=== PATIENT | male | born 1975 | race Caucasian/White ===

== ENCOUNTER 2022-12-13 16:35 | Outpatient (REF) | payer OTHER, SELFPAY ==
--- NOTE | ~2022-12-13 | US_ITS ---
EXAMINATION: US VENOUS WITH DOPPLER LOWER EXTREMITY, BILATERAL CLINICAL INFORMATION: Pain and swelling, bilateral limb pain. COMPARISON: None available. TECHNIQUE: Ultrasound of the deep veins is performed from the hip to the calf with compression sonography and color and pulse Doppler assessment. Spectral analysis with color-flow imaging is performed. FINDINGS: RIGHT: There is normal venous compression and respiratory variation and augmented flow. The visualized common femoral vein, superficial femoral vein, profunda femoral vein, popliteal vein, and the trifurcation region shows no evidence of deep venous thrombosis. There is no significant popliteal fossa cyst. LEFT: There is normal venous compression and respiratory variation and augmented flow. The visualized common femoral vein, superficial femoral vein, profunda femoral vein, popliteal vein, and the trifurcation region shows no evidence of deep venous thrombosis. There is no significant popliteal fossa cyst. If the patient's symptoms persist, followup ultrasound in 5 days 7 days might be of value to exclude proximal propagation from a non-visualized calf vein. US/US venous duplex LE BI IMPRESSION: No DVT demonstrated in the bilateral lower extremities.
== END 2022-12-13 16:36 | disposition home or self-care (01) ==
LOC: HO.US 16:35
PROVIDERS: Visit Provider Internal Medicine Nephrology
DX: M79.606 Pain in leg, unspecified (principal); R22.43 Localized swelling, mass and lump, lower limb, bilateral; N18.30 Chronic kidney disease, stage 3 unspecified
CPT/HCPCS: 93970

== ENCOUNTER 2023-02-21 14:15 | Outpatient (AMB) | payer OTHER, SELFPAY ==
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
[2023-02-21 14:46] VITALS: BP 110/70; PULSE 102; BMI 23.2
== END 2023-02-21 15:13 | disposition home or self-care (01) ==
LOC: HO.HKA 14:15
PROVIDERS: Visit Provider Internal Medicine Nephrology
DX: N18.4 Chronic kidney disease, stage 4 (severe) (principal); K50.919 Crohn's disease, unspecified, with unspecified complications; L03.116 Cellulitis of left lower limb
CPT/HCPCS: 99214

== ENCOUNTER → 2023-02-21 14:15 | Outpatient (BNVA) | payer OTHER, SELFPAY | PROVIDERS: Visit Provider Internal Medicine Nephrology | DX: N18.4 Chronic kidney disease, stage 4 (severe) (principal); L03.116 Cellulitis of left lower limb | CPT/HCPCS: 99212 ==

== ENCOUNTER 2023-03-27 11:48 | Outpatient (AMB) | payer OTHER, SELFPAY ==
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
[2023-03-27 11:55] VITALS: BP 90/60; PULSE 91
== END 2023-03-27 12:27 | disposition home or self-care (01) ==
PROVIDERS: PCP Nurse Practitioner Adult Health; Visit Provider Internal Medicine Nephrology
DX: N18.4 Chronic kidney disease, stage 4 (severe) (principal); E87.20 Acidosis, unspecified; N17.0 Acute kidney failure with tubular necrosis
CPT/HCPCS: 99213

== ENCOUNTER → 2023-03-27 11:48 | Outpatient (BNVA) | payer OTHER, SELFPAY | PROVIDERS: PCP Nurse Practitioner Adult Health; Visit Provider Internal Medicine Nephrology | DX: N18.4 Chronic kidney disease, stage 4 (severe) (principal); N17.0 Acute kidney failure with tubular necrosis; E87.20 Acidosis, unspecified | CPT/HCPCS: 99212 ==

== ENCOUNTER 2023-05-24 10:49 | Outpatient (AMB) | payer OTHER, SELFPAY ==
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
[2023-05-24 11:11] VITALS: BP 100/60; BMI 22.4
== END 2023-05-24 12:08 | disposition home or self-care (01) ==
PROVIDERS: PCP Nurse Practitioner Adult Health; Visit Provider Internal Medicine Nephrology
DX: E87.20 Acidosis, unspecified (principal); N18.4 Chronic kidney disease, stage 4 (severe); D63.1 Anemia in chronic kidney disease
CPT/HCPCS: 99214

== ENCOUNTER → 2023-05-24 10:49 | Outpatient (BNVA) | payer OTHER, SELFPAY | PROVIDERS: PCP Nurse Practitioner Adult Health; Visit Provider Internal Medicine Nephrology | DX: N18.4 Chronic kidney disease, stage 4 (severe) (principal); D63.1 Anemia in chronic kidney disease; E87.20 Acidosis, unspecified | CPT/HCPCS: 99212 ==

== ENCOUNTER 2023-08-23 09:48 | Outpatient (AMB) | payer OTHER, SELFPAY ==
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
[2023-08-23 09:53] VITALS: BP 110/70; PULSE 102; O2SAT 93; BMI 21.9
== END 2023-08-23 10:13 | disposition home or self-care (01) ==
PROVIDERS: PCP Nurse Practitioner Adult Health; Visit Provider Internal Medicine Nephrology
DX: N18.4 Chronic kidney disease, stage 4 (severe) (principal); D63.1 Anemia in chronic kidney disease
CPT/HCPCS: 99214

== ENCOUNTER → 2023-08-23 09:48 | Outpatient (BNVA) | payer OTHER, SELFPAY | PROVIDERS: PCP Nurse Practitioner Adult Health; Visit Provider Internal Medicine Nephrology | DX: N18.4 Chronic kidney disease, stage 4 (severe) (principal); D63.1 Anemia in chronic kidney disease | CPT/HCPCS: 99212 ==

== ENCOUNTER 2023-11-15 10:10 | Outpatient (AMB) | payer OTHER, SELFPAY ==
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
[2023-11-15 10:25] VITALS: BP 130/80; PULSE 105; O2SAT 97; BMI 23.2
== END 2023-11-15 11:02 | disposition home or self-care (01) ==
PROVIDERS: PCP Nurse Practitioner Adult Health; Visit Provider Internal Medicine Nephrology
DX: N18.4 Chronic kidney disease, stage 4 (severe) (principal); E87.20 Acidosis, unspecified; D63.1 Anemia in chronic kidney disease
CPT/HCPCS: 99214

== ENCOUNTER → 2023-11-15 10:10 | Outpatient (BNVA) | payer OTHER, SELFPAY | PROVIDERS: PCP Nurse Practitioner Adult Health; Visit Provider Internal Medicine Nephrology | DX: E87.20 Acidosis, unspecified (principal); N18.4 Chronic kidney disease, stage 4 (severe); D63.1 Anemia in chronic kidney disease | CPT/HCPCS: 99212 ==

== ENCOUNTER 2024-02-26 16:27 | Outpatient (AMB) | payer OTHER, SELFPAY ==
[2024-02-26 16:30] VITALS: BP 120/82; PULSE 89; O2SAT 97; BMI 26.2
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
== END 2024-02-26 16:49 | disposition home or self-care (01) ==
LOC: HO.HKAS 16:27
PROVIDERS: PCP Nurse Practitioner Adult Health; Visit Provider Internal Medicine Nephrology
DX: N18.4 Chronic kidney disease, stage 4 (severe) (principal); E87.20 Acidosis, unspecified; D63.1 Anemia in chronic kidney disease; E55.9 Vitamin D deficiency, unspecified
CPT/HCPCS: 99214

== ENCOUNTER → 2024-02-26 16:27 | Outpatient (BNVA) | payer OTHER, SELFPAY | PROVIDERS: PCP Nurse Practitioner Adult Health; Visit Provider Internal Medicine Nephrology | DX: N18.4 Chronic kidney disease, stage 4 (severe) (principal); D63.1 Anemia in chronic kidney disease; E87.20 Acidosis, unspecified; E53.8 Deficiency of other specified B group vitamins; E55.9 Vitamin D deficiency, unspecified | CPT/HCPCS: 99212 ==

== ENCOUNTER 2024-05-29 10:31 | Outpatient (AMB) | payer OTHER, SELFPAY ==
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
--- OUTSIDE RECORDS SUMMARY | 2024-05-29 10:33 | XMS_ITS | Clinical Summary ---
[facility] [address] [place] [address] Care Team Providers Care Bridges And Buildings Supervisor Name Role Phone Josie Samuel NP Primary Care Provider [phone] Social History Tobacco Use Types Packs/Day Years Used Date Smoking Tobacco: Former Cigarettes Q uit: 10/22/2022 Smokeless Tobacco: Never Alcohol Use Standard Drinks/Week Comments Not Currently 0 (1 standard drink = 0.6 oz pur e alcohol) Sex and Gender Information Value Date Recorded Sex Assigned at Not on file Gender Identity Not on file Sexual Orientation Not on file Obstetrics History Last Filed Vital Signs Vital Sign Reading Time Taken Comments Blood Pressure 120/70 01/17/2023 8:15 AM EDT Sit ting L Arm Pulse 74 01/17/2023 8:15 AM EDT Temperature - - Respiratory Rate - - Oxygen Saturation - - Inhaled Oxygen Concentration - - Weight 56.2 kg (124 lb) 01/17/2023 8:15 AM EDT Height - - Body Mass Index - - Plan of Treatment Health Maintenance Due Date Last Done Comments Breast Cancer Screening 1975 COVID-19 Vaccine (#1) 1980 Pneumococcal Vaccine: Pediat rics (0 to 5 Years) and At-Risk Patients (6 to 64 Years) (1 of 2 - PCV) 1981 DTaP,Tdap,and Td Vaccines (1 - Tdap) 1994 Hepatitis B Vaccines (1 of 3 - 19+ 3-dose series) 1994 Cervical Cancer Screening: P ap Smear 1996 Cholesterol Screening (Lipid Panel) 03/25/2022 Colorectal Cancer Screening: Colonoscopy 03/25/2022 Depression Screening 03/25/2022 HIV Screening 03/25/2022 Hepatitis C Screening 03/25/2022 Social Influencers of Health Screening 03/25/2022 Hypertension/CHF/CAD Annual BMP Blood Test 05/23/2023 Influenza Vaccine (#1) 2023 HIB Vaccines Aged Out No longer eligi ble based on patient's age to complete this topic HPV Vaccines Aged Out No longer eligi ble based on patient's age to complete this topic Hepatitis A Vaccines Aged Out No long er eligible based on patient's age to complete this topic IPV Vaccines Aged Out No longer eligi ble based on patient's age to complete this topic MMR Vaccines Aged Out No longer eligi ble based on patient's age to complete this topic Meningococcal ACWY Vaccine Aged Out N o longer eligible based on patient's age to complete this topic RSV Immunization Patients Un dieter 20 months Aged Out No longer eligible b ased on patient's age to complete this topic Varicella Vaccines Aged Out No longer eligible based on patient's age to complete this topic Care Teams Bridges And Buildings Supervisor Relationship Specialty Start Date End Date Josie Samuel NP [address] [place] [address] PCP - General 11/02/22
--- OUTSIDE RECORDS SUMMARY | 2024-05-29 10:33 | XMS_ITS | Clinical Summary ---
Author Organization [facility] Address [address] [place] [address] Care Team Providers Care Pre Sales Systems Engineer Name Role Phone Narendra Ulloa MD Primary Care Provider [phone] Family History Medical History Relation Name Comments Cancer Brother Cancer Mother Relation Name Status Comments Brother Mother Social History Tobacco Use Types Packs/Day Years Used Date Smoking Tobacco: Never Assessed Sex and Gender Information Value Date Recorded Sex Assigned at Not on file Gender Identity Not on file Sexual Orientation Not on file Job Start Date Occupation Industry Not on file Not on file Not on file Plan of Treatment Health Maintenance Due Date Last Done Comments Hepatitis B Vaccines (1 of 3 - 3-dose series) 1975 Hepatitis C Screening 1975 COVID-19 Vaccine (#1) 1975 Depression Screening 1987 Preventative Health Evaluation 1993 DTap / Tdap / Td (1 - Tdap) 1994 Cervical Cancer Screening (P ap Smear) 1996 Colon Cancer Screening (Colonoscopy) 2020 Influenza Vaccine (#1) 2023 Pneumococcal Vaccine Aged Out No long er eligible based on patient's age to complete this topic RSV Ped < 20 months Aged Out No longe r eligible based on patient's age to complete this topic Care Teams Pre Sales Systems Engineer Relationship Specialty Start Date End Date Narendra Ulloa MD PCP - General Body Shop Floorperson 02/07/17
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
[2024-05-29 10:51] VITALS: BP 130/70; PULSE 95; O2SAT 97; BMI 24.0
== END 2024-05-29 11:19 | disposition home or self-care (01) ==
LOC: HO.HKAS 10:31
PROVIDERS: PCP Nurse Practitioner Family; Visit Provider Internal Medicine Nephrology
DX: N18.4 Chronic kidney disease, stage 4 (severe) (principal); D63.1 Anemia in chronic kidney disease; E87.20 Acidosis, unspecified
CPT/HCPCS: 99214

== ENCOUNTER → 2024-05-29 10:31 | Outpatient (BNVA) | payer OTHER, SELFPAY | PROVIDERS: PCP Nurse Practitioner Family; Visit Provider Internal Medicine Nephrology | DX: N18.4 Chronic kidney disease, stage 4 (severe) (principal); E87.20 Acidosis, unspecified; D63.1 Anemia in chronic kidney disease | CPT/HCPCS: 99212 ==

== ENCOUNTER 2024-08-12 10:17 | Outpatient (AMB) | payer OTHER, SELFPAY ==
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
[2024-08-12 10:35] VITALS: BP 140/82; PULSE 101; O2SAT 97; BMI 25.3
--- OUTSIDE RECORDS SUMMARY | 2024-08-12 11:52 | XMS_ITS | Clinical Summary ---
Author Organization [facility] Address [address] [facility] [address] [place] [address] Phone Care Team Providers Care Reel Stripper Name Role Phone Josie Samuel NP Primary Care Provider [phone]- [phone] Allergies Active Allergy Reactions Criticality Noted Date [...] deficiency 06/05/202206/05 Carpal tunnel syndrome 02/24/201406/05 Immunizations Immunization Administration Dates Next Due DT 08/15/2003,05/25/1989 Influenza [...] Due Date Last Done Comments Hepatitis B Vaccine (1 of 3 - 19+ 3-dose series) 1994 Pneumococcal Vaccine: Peds ( 0 to 5 Years) and At-Risk Patients (6 to 49 Years) (1 of 2 - PCV) 1994 Colorectal Cancer Screening: Annual FOBT 2024 Colorectal Cancer Screening: Colonoscopy 2024 Colorectal Cancer Screening: Sigmoidoscopy 2024 Influenza Vaccine Completed 04/21/2024, , 03/06/2019, Additional history exists Insurance [facility] Medicaid [facility] Medicaid Care Teams Reel Stripper Relationship Specialty Start Date End Date Josie Samuel NP [address] PCP - General Nurse Practitioner 03/07/22
--- OUTSIDE RECORDS SUMMARY | 2024-08-12 11:52 | XMS_ITS | Clinical Summary ---
Author Organization [facility] Address [address] [place] [address] Care Team Providers Care Gravity Meter Operator Name Role Phone Narendra Ulloa MD Primary Care Provider [phone] Family History Medical History Relation Name Comments [...] age to complete this topic Care Teams Gravity Meter Operator Relationship Specialty Start Date End Date Narendra Ulloa MD PCP - General Financial Institution Treasurer 02/07/17
--- OUTSIDE RECORDS SUMMARY | 2024-08-12 11:52 | XMS_ITS | Clinical Summary ---
[facility] Address [address] [place] [address] Care Team Providers Care Hog Pusher Name Role Phone Josie Samuel NP Primary Care Provider Social History Tobacco Use Types Packs/Day Years Used Date Smoking Tobacco: Former Cigarettes Q uit: 10/22/2022 Smokeless Tobacco: Never Alcohol Use Standard Drinks/Week Comments Not Currently 0 (1 standard drink = 0.6 oz pur e alcohol) Comments Unknown Sex and Gender Information Value Date Recorded Sex Assigned at Not on file Legal Sex Female 8:16 PM EST Gender Identity Not on file [...] Cancer Screening 1975 COVID-19 Vaccine (#1) 1980 DTaP,Tdap,and Td Vaccines (1 - Tdap) 1994 Hepatitis B Vaccines (1 of 3 - 19+ 3-dose series) 1994 Pneumococcal Vaccine: Pediat rics (0 to 5 Years) and At-Risk Patients (6 to 64 Years) (1 of 2 - PCV) 1994 Cervical Cancer Screening: P ap Smear 1996 Cholesterol Screening (Lipid Panel) 03/25/2022 Colorectal Cancer Screening: Colonoscopy 03/25/2022 Depression Screening 03/25/2022 HIV Screening 03/25/2022 Hepatitis C Screening 03/25/2022 Social Influencers of Health Screening 03/25/2022 Hypertension/CHF/CAD Annual BMP Blood Test 05/23/2023 Influenza Vaccine (Season Ended) 2024 HIB Vaccines Aged Out No longer eligi [...] patient's age to complete this topic Meningococcal B Vaccine Aged Out No l onger eligible based on patient's age to complete this topic RSV Immunization Patients Un dieter 20 months Aged Out No longer eligible b ased on patient's age to complete this topic Varicella Vaccines Aged Out No longer eligible based on patient's age to complete this topic Care Teams Hog Pusher Relationship Specialty Start Date End Date Josie Samuel NP [address] [place] [address] PCP - General 11/02/22
== END 2024-08-12 11:34 | disposition home or self-care (01) ==
LOC: HO.HKAS 10:17
PROVIDERS: PCP Nurse Practitioner Family; Visit Provider Internal Medicine Nephrology
DX: N17.9 Acute kidney failure, unspecified (principal); N18.4 Chronic kidney disease, stage 4 (severe); D63.1 Anemia in chronic kidney disease; E87.21 Acute metabolic acidosis; E55.9 Vitamin D deficiency, unspecified
CPT/HCPCS: 99215

== ENCOUNTER 2024-08-12 10:17 | Outpatient (REF) | payer OTHER, SELFPAY ==
--- OUTSIDE RECORDS SUMMARY | 2024-08-12 14:10 | XMS_ITS | Clinical Summary ---
Author Organization [facility] Address [address] [place] [address] Care Team Providers Care Tensioning Machine Operator Name Role Phone Narendra Ulloa MD Primary Care Provider [phone] Family History Medical History Relation Name Comments [...] age to complete this topic Care Teams Tensioning Machine Operator Relationship Specialty Start Date End Date Narendra Ulloa MD PCP - General Manager Social Services 02/07/17
--- OUTSIDE RECORDS SUMMARY | 2024-08-12 14:10 | XMS_ITS | Clinical Summary ---
Author Organization [facility] Address [address] [facility] [address] [place] [address] Phone Care Team Providers Care Software Development Intern Name Role Phone Josie Samuel NP Primary Care Provider [phone]- [phone] Allergies Active Allergy Reactions Criticality Noted Date [...] Health Medicaid [facility] Medicaid Care Teams Software Development Intern Relationship Specialty Start Date End Date Josie Samuel NP [address] PCP - General Nurse Practitioner 03/07/22
--- OUTSIDE RECORDS SUMMARY | 2024-08-12 14:10 | XMS_ITS | Clinical Summary ---
[facility] Address [address] [place] [address] Care Team Providers Care Resident Program Specialist Name Role Phone Josie Samuel NP Primary [...] age to complete this topic Care Teams Resident Program Specialist Relationship Specialty Start Date End Date Josie Samuel NP [address] [place] [address] PCP - General 11/02/22
[2024-08-12 18:50] LABS: Anion Gap 12 (12-20); Blood Urea Nitrogen 33 mg/dL (9-16); Carbon Dioxide 17 mmol/L (22-29); Chloride 117 mmol/L (96-108); Estimated Glomerular Filt Rate 19; Potassium 4.2 mmol/L (3.3-5.1); Sodium 142 mmol/L (135-145)
== END 2024-08-12 10:18 | disposition home or self-care (01) ==
LOC: HO.HKASLDS 10:17
PROVIDERS: PCP Nurse Practitioner Family; Visit Provider Internal Medicine Nephrology
DX: N17.9 Acute kidney failure, unspecified (principal); N18.4 Chronic kidney disease, stage 4 (severe); D63.1 Anemia in chronic kidney disease; E87.20 Acidosis, unspecified; E55.9 Vitamin D deficiency, unspecified
CPT/HCPCS: 36415; 80051; 82565; 84520; 99212

== ENCOUNTER 2024-08-27 13:29 | Outpatient (REF) | payer OTHER, SELFPAY ==
--- OUTSIDE RECORDS SUMMARY | 2024-08-27 14:45 | XMS_ITS | Clinical Summary ---
[facility] Address [address] [place] [address] Care Team Providers Care Bottle House Pumper Name Role Phone Josie Samuel NP Primary [...] age to complete this topic Care Teams Bottle House Pumper Relationship Specialty Start Date End Date Josie Samuel NP [address] [place] [address] PCP - General 11/02/22
--- OUTSIDE RECORDS SUMMARY | 2024-08-27 14:45 | XMS_ITS | Clinical Summary ---
Author Organization [facility] Address [address] [facility] [address] [place] [address] Phone Care Team Providers Care Heel Cementer Machine Name Role Phone Josie Samuel NP Primary Care Provider Allergies Active Allergy Reactions Criticality Noted Date [...] Health Medicaid [facility] Medicaid Care Teams Heel Cementer Machine Relationship Specialty Start Date End Date Josie Samuel NP [address] PCP - General Nurse Practitioner 03/07/22
[2024-08-27 18:02] LABS: MANUAL DIFF FLAG NO
[2024-08-27 18:16] LABS: Basophils Percent Auto 0.4 % (0-2); Eosinophils Absolute Auto 0.3 X10*3/uL (0.0-0.4); Eosinophils Percent Auto 2.6 % (0-4); Hematocrit 43.3 % (37.0-47.0); Hemoglobin 14.5 g/dl (12.0-16.0); Imm Gran Abs Auto 0.07 X10*3/uL (0.00-0.03); Imm Gran Pct Auto 0.7 % (0.0-0.4); Lymphocytes Absolute Auto 3.1 X10*3/uL (1.2-4.9); Lymphocytes Percent Auto 30.1 % (20-40); Mean Corpuscular HGB Conc 33.5 g/dl (31.0-35.0); Mean Corpuscular Hemoglobin 33.4 pg (27.0-33.0); Mean Corpuscular Volume 99.8 fL (80.0-98.0); Mean Platelet Volume 10.9 fL (9.4-12.3); Monocytes Absolute Auto 0.5 X10*3/uL (0.1-1.2); Monocytes Percent Auto 5.2 % (2-11); NRBC Pct Auto 0.3 /100WBC (0.0-0.2); Neutrophils Absolute Auto 6.2 x10*3/uL (2.0-8.3); Platelet Count 259 X10*3/uL (160-400); Red Blood Count 4.34 X10*6/uL (4.20-5.50); Red Cell Distribution Width 16.8 % (11.0-16.0); White Blood Count 10.2 X10*3/uL (4.8-10.8)
[2024-08-27 18:58] LABS: Anion Gap 16 (12-20); Blood Urea Nitrogen 25 mg/dL (9-16); Calcium 8.1 mg/dL (8.4-10.2); Carbon Dioxide 8 mmol/L (22-29); Chloride 117 mmol/L (96-108); Estimated Glomerular Filt Rate 13; Magnesium 1.7 mg/dL (1.6-2.6); Phosphorus 6.7 mg/dL (2.7-4.5); Potassium 3.2 mmol/L (3.3-5.1); Sodium 138 mmol/L (135-145)
== END 2024-08-27 13:30 | disposition home or self-care (01) ==
LOC: HO.HKASLDS 13:29
PROVIDERS: Visit Provider Internal Medicine Nephrology
DX: N18.4 Chronic kidney disease, stage 4 (severe) (principal); E87.20 Acidosis, unspecified; D63.1 Anemia in chronic kidney disease
CPT/HCPCS: 36415; 80051; 82310; 82565; 83735; 84100; 84520; 85025

== ENCOUNTER 2024-09-09 15:57 | Outpatient (AMB) | payer OTHER, SELFPAY ==
[2024-09-09 16:06] VITALS: BP 120/76; PULSE 101; O2SAT 98; BMI 22.3
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
--- OUTSIDE RECORDS SUMMARY | 2024-09-09 16:43 | XMS_ITS | Clinical Summary ---
Author Organization [facility] Address [address] [facility] [address] [place] [address] Phone Care Team Providers Care Associate Publisher Name Role Phone Josie Samuel NP Primary Care Provider [phone] Allergies Active Allergy Reactions Criticality Noted Date [...] Health Medicaid [facility] [facility] Medicaid Care Teams Associate Publisher Relationship Specialty Start Date End Date Josie Samuel NP [address] PCP - General Nurse Practitioner 03/07/22
--- OUTSIDE RECORDS SUMMARY | 2024-09-09 16:43 | XMS_ITS | Clinical Summary ---
Author Organization [facility] Address [address] [place] [address] Care Team Providers Care Policy Analyst Name Role Phone Narendra Ulloa MD Primary Care Provider [phone] Family History Medical History Relation Name Comments [...] age to complete this topic Care Teams Policy Analyst Relationship Specialty Start Date End Date Narendra Ulloa MD PCP - General Home Health Registered Nurse 02/07/17
--- OUTSIDE RECORDS SUMMARY | 2024-09-09 16:43 | XMS_ITS | Clinical Summary ---
[facility] Organization [facility] Address [address] [place] [address] Care Team Providers Care Aquarium Tank Attendant Name Role Phone Josie Samuel NP Primary [...] age to complete this topic Care Teams Aquarium Tank Attendant Relationship Specialty Start Date End Date Josie Samuel NP [address] [place] [address] PCP - General 11/02/22
== END 2024-09-09 16:30 | disposition home or self-care (01) ==
LOC: HO.HKAS 15:57
PROVIDERS: PCP Nurse Practitioner Family; Visit Provider Internal Medicine Nephrology
DX: N17.9 Acute kidney failure, unspecified (principal); N18.9 Chronic kidney disease, unspecified; E87.20 Acidosis, unspecified; E55.9 Vitamin D deficiency, unspecified; N18.4 Chronic kidney disease, stage 4 (severe); D63.1 Anemia in chronic kidney disease
CPT/HCPCS: 99214

== ENCOUNTER → 2024-09-09 15:57 | Outpatient (BNVA) | payer OTHER, SELFPAY | PROVIDERS: PCP Nurse Practitioner Family; Visit Provider Internal Medicine Nephrology | DX: N18.4 Chronic kidney disease, stage 4 (severe) (principal); N17.9 Acute kidney failure, unspecified; E87.20 Acidosis, unspecified; E55.9 Vitamin D deficiency, unspecified; D63.1 Anemia in chronic kidney disease | CPT/HCPCS: 99212 ==

== ENCOUNTER 2025-01-06 14:41 | Outpatient (AMB) | payer OTHER, SELFPAY ==
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
[2025-01-06 14:46] VITALS: BP 150/90; PULSE 80; O2SAT 97; BMI 24.7
--- OUTSIDE RECORDS SUMMARY | 2025-01-06 18:22 | XMS_ITS | Clinical Summary ---
Author Organization [facility] Address [address] [facility] [address] [place] [id number] Phone Care Team Providers Care Dye Weigher Name Role Phone Martina Jacome WARNING COORDINATION METEOROLOGIST Primary Care Provider [phone] Allergies Active Allergy Reactions Criticality Noted Date Comments Percocet (Oxycodone-Acetamino phen) Other (See Comments) 11/29/2005 Vomiting, Dizziness Phs Other Free Text-See Phs Viewer 11/29/2005 Plastic Adhesive Tape Medications albuterol 90 mcg/actuation inhaler Inhale 2 puffs into the lungs. Active albuterol 2.5 mg /3 mL (0.083 %) nebulizer solution Take 2.5 mg by nebulization . 11/24/2024 Active azaTHIOprine (IMURAN) 50 mg tablet Take 150 mg by mouth daily. Active benzonatate (TESSALON) 100 MG capsule 09/09/2024 Active buPROPion (WELLBUTRIN XL) 300 MG ER 24 hr tablet Take 300 mg by mouth every morning. Active cyanocobalamin (VITAMIN B-12) 1,000 mcg/mL injection Inject 1,000 mcg into the muscle every 30 (thirty) days. Active entecavir (BARACLUDE) 0.5 MG tablet Take 0.5 mg by mouth daily. Active fluticasone propionate (FLONASE) 50 mcg/actuation nasal spray 10/14/2024 Active TRELEGY ELLIPTA 200-62.5-25 mcg inhaler 09/09/2024 Active BREO ELLIPTA 50-25 mcg/dose DsDv 11/24/2024 Active predniSONE (DELTASONE) 20 MG tablet Take 2 tablets (40 mg total) by mouth daily for 4 days. 8 tablet 12/12/2024 12/17/19 Active Problems No known active problems Encounters Date Type Department Care Team Description 12/11/2024 6:15 PM EDT - 12/11/2024 7:57 PM EDT Emergency [facility] [address] [id number] Kody Olvera MD Discharge Disposition: Home or Self Care 12/11/2024 9:20 AM EDT Office Visit [facility] [address] [address] Emmanuel Maharaj, RUBA Keller, Isabella Block, TONGUE STITCHER Shortness of breath (Primary Dx) from Last 3 Months Social History Tobacco Use Types Packs/Day Years Used Date Smoking Tobacco: Never Assessed Education Answer Date Recorded Are you interested in more education? Not on sharda e 12/11/2024 Are you concerned about learning? Not on file 12/11/2024 No 12/11/2024 No 12/11/2024 Digital Access Answer Date Recorded No 12/11/2024 No 12/11/2024 Reliable internet access at home? Not on file 12/11/2024 Device with a working camera? Not on file Intimate Partner Violence Answer Date R ecorded Are you denied basic needs s uch as food, clothing, or medical care? No 12/11/2024 In the past 12 months have y ou been in a relationship with a person who hurts, threatens, or tries to control you? No 12/11/2024 Are you denied basic needs s uch as food, clothing, or medical care? No 12/11/2024 In the past 12 months have y ou been in a relationship with a person who hurts, threatens, or tries to control you? No 12/11/2024 Comments Unknown Sex and Gender Information Value Date Recorded Sex Assigned at Female 12/11/2024 10:29 AM EDT Legal Sex Female 8:02 PM EST Gender Identity Female 12/11/2024 10:29 AM EDT Sexual Orientation Not on file Last Filed Vital Signs Vital Sign Reading Time Taken Comments Blood Pressure 143/88 12/11/2024 6:58 PM EDT Pulse 88 12/11/2024 6:58 PM EDT Temperature 37 C (98.6 F) 12/11/2024 6:58 PM EDT Respiratory Rate 20 12/11/2024 6:58 PM EDT Oxygen Saturation 98% 12/11/2024 6:58 PM EDT Inhaled Oxygen Concentration - - Weight 53.5 kg (118 lb) 12/11/2024 10:27 AM EDT Height 154.9 cm (5' 1 ) 12/11/2024 10:27 AM EDT Body Mass Index 22.3 12/11/2024 10:27 AM EDT Plan of Treatment Health Maintenance Due Date Last Done Comments ALKALINE PHOSPHATASE LEVEL 1975 LIPID PANEL 1975 COVID-19 VACCINE (#1) 1980 DEPRESSION SCREENING 1987 SMOKING Hx and SMOKELESS TOBACCO SCREENING 1988 HEPATITIS C SCREENING 1993 HIV ONE-TIME SCREENING (18-65 YEARS) 1993 PNEUMOCOCCAL VACCINES (0-49 years) (1 of 2 - PCV) 1994 PAP SMEAR 1996 MAMMOGRAM 2015 COLOGUARD 2020 COLONOSCOPY 2020 COLORECTAL CANCER SCREENING 2020 FIT TEST 2020 FOBT 2020 SIGMOIDOSCOPY 2020 VIRTUAL COLONOSCOPY 2020 Adult Td,Tdap Booster 03/25/2022 03/25/2012 INFLUENZA VACCINE (#1) 2024 4, 01/30/2023, 03/03/2022, Additional history exists CREATININE LEVEL 12/11/2025 12/11/2024, 03/26/2023 HEPATITIS A VACCINES Aged Out No long er eligible based on patient's age to complete this topic HIB VACCINES Aged Out No longer eligi ble based on patient's age to complete this topic MENINGOCOCCAL VACCINES (ACWY) Aged Out No longer eligible based on patient's age to complete this topic MENINGOCOCCAL VACCINES (B) Aged Out N o longer eligible based on patient's age to complete this topic Medical Devices Not on file Procedures Procedure Name Priority Date/Time Associated Diagnosis Comments D-DIMER STAT 12/11/2024 7:15 PM EDT BASIC METABOLIC PANEL STAT 12/11/2024 7:15 PM EDT CBC AND DIFFERENTIAL STAT 12/11/2024 7:15 PM EDT XR CHEST PA AND LATERAL 2 VIEWS STAT 12/11/2024 10:54 AM EDT ECG 12-LEAD STAT 12/11/2024 10:43 AM EDT COVID PANDEMIC RESPIRATORY VIRAL ORDER (PRO) STAT 12/11/2024 10:32 AM EDT from Last 3 Months Results * (ABNORMAL) D-dimer (12/11/2024 7:15 PM EDT) D-DIMER 684(H) <500 ng/mL FEU [facility] Comment:In patients with low to moderate pre-test probability scores for VTE (PE or DVT), a D-Dimer cut-off less than 500 ng/mL (FEU) has a negative predictive value (NPV) of 97 to 100%. Blood 12/11/2024 7:15 PM EDT 12/11/2024 7:19 PM EDT us Kody Olvera MD LAB BLOOD ORDERABLES Fin al Result [facility] [address] [place] [address] * (ABNORMAL) CBC and differential (12/11/2024 7:15 PM EDT) WBC 7.07 4.00 - 11.00 K/uL [facility] RBC 3.85(L) 4.00 - 5.20 M/uL [facility] HGB 13.2 12.0 - 16.0 g/dL [facility] HCT 40.4 36.0 - 46.0 % [facility] PLT 181 150 - 450 K/uL [facility] MCV 104.9(H) 80.0 - 100.0 fL [facility] MCH 34.3(H) 27.0 - 31.0 pg [facility] MCHC 32.7 32.0 - 36.0 g/dL [facility] RDW 14.1 11.5 - 14.5 % [facility] MPV 10.0 8.4 - 12.0 fL [facility] NRBC 0.00 0.00 /100 WBCs [facility] ABSOLUTE NRBC 0.00 0.00 K/uL [facility] DIFF METHOD Auto [facility] NEUTS 58.1 48.0 - 76.0 % [facility] LYMPHS 29.4 18.0 - 41.0 % [facility] MONOS 5.1 4.0 - 11.0 % [facility] EOS 6.4(H) 0.0 - 5.0 % [facility] BASOS 0.4 0.0 - 1.5 % [facility] Granulocytes, immature (%) 0.6 0.0 - 0.9 % [facility] ABSOLUTE NEUTS 4.11 1.92 - 7.60 K/uL [facility] ABSOLUTE LYMPHS 2.08 0.72 - 4.10 K/uL [facility] ABSOLUTE MONOS 0.36 0.16 - 1.10 K/uL [facility] ABSOLUTE EOS 0.45 0.00 - 0.50 K/uL [facility] ABSOLUTE BASOS 0.03 0.00 - 0.15 K/uL [facility] Granulocytes, immature 0.04 0.00 - 0.09 K/uL [facility] Blood 12/11/2024 7:15 PM EDT 12/11/2024 7:19 PM EDT us Kody Olvera MD LAB BLOOD ORDERABLES Fin al Result [facility] [address] [place], [place] [id number] * (ABNORMAL) Basic metabolic panel (12/11/2024 7:15 PM EDT) SODIUM 139 133 - 146 mmol/L [facility] CHLORIDE 114(H) 96 - 108 mmol/L [facility] POTASSIUM 4.0 3.3 - 5.1 mmol/L [facility] CO2 15(LL) 21 - 35 mmol/L [facility] Comment: Critical value: Results called to and read back by: Alejandra White in ED BUN 19 6 - 19 mg/dL [facility] CREATININE 2.30(H) 0.5 - 1.5 mg/dL [facility] GLUCOSE 96 70 - 99 mg/dL [facility] CALCIUM 9.0 8.4 - 10.3 mg/dL [facility] EGFR 25(L) >59 mL/min/1.7 3m2 [facility] Comment:Estimated glomerular filtration rate calculated using the CKD-EPI refit equation. ANION GAP 14 10 - 20 mmol/L [facility] Blood 12/11/2024 7:15 PM EDT 12/11/2024 7:19 PM EDT us Kody Olvera MD LAB BLOOD ORDERABLES Fin al Result [address] [id number] * XR CHEST PA AND LATERAL 2 VIEWS (12/11/2024 10:54 AM EDT) Anatomical Region Laterality Modality Chest Computed Radiogr aphy 12/11/2024 11:1 7 AM EDT Impressions 12/11/2024 11:19 AM EDT No acute abnormality. Narrative 12/11/2024 11:19 AM EDT XR CHEST PA AND LATERAL 2 VIEWS Referring clinician's provided indication for this examination in Epic: Dyspnea (Shortness of Breath) COMPARISON: None FINDINGS: Devices/Tubes/Lines: None. Lungs: No focal consolidation or pulmonary edema. Pleura: Trace bilateral effusions/thickening. No pneumothorax. Heart/Mediastinum: Normal heart and mediastinum. Bones/Soft Tissues: No significant abnormality. Procedure Note Cheyenne Posadas MBBS - 12/11/2024 XR CHEST PA AND LATERAL 2 VIEWS Referring clinician's provided indication for this examination in Epic:Dyspnea (Shortness of Breath) COMPARISON: None FINDINGS: Devices/Tubes/Lines: None. Lungs: No focal consolidation or pulmonary edema. Pleura: Trace bilateral effusions/thickening. No pneumothorax. Heart/Mediastinum: Normal heart and mediastinum. Bones/Soft Tissues: No significant abnormality. IMPRESSION: No acute abnormality. Edilberto Marin PA-C IMG XR CHEST Final Result * ECG 12-LEAD (12/11/2024 10:43 AM EDT) Ventricular Rate EKG/MIN 89 BPM [facility] Atrial Rate 89 BPM [facility] DE Interval 136 ms [facility] QRS Duration 78 ms [facility] QT Interval 370 ms [facility] QTC Interval 450 ms [facility] P [place] 64 degrees [facility] R Wave [place] 75 degrees [facility] T Wave [place] 65 degrees [facility] 12/11/2024 10:4 3 AM EDT 12/11/2024 11:55 AM EDT Narrative [facility] - 12/11/2024 11:55 AM EDT Normal sinus rhythm Anterior infarct , age undetermined Abnormal ECG No previous ECGs available Confirmed by Bhupinder Silva ([id number]) on 12/11/2024 11:55:09 AM Edilberto Marin PA-C ECG ORDERABLES Final Result [facility] * COVID Pandemic Respiratory Viral Order (PRO) (12/11/2024 10:32 AM EDT) Test Ordered Rapid COVID has been ordered [facility] Specimen Source/Description NASAL [facility] SARS-CoV 2 (COVID-19) PCR Not Detected Not Detected [facility] Comment: SARS-CoV-2 not detected Negative results do not preclude SARS-CoV-2 infection and should not be used as the sole basis for patient management decisions. Negative results must be combined with clinical observations, patient history, and epidemiological information. Other (Nasopharyngeal swab) 12/11/2024 10:32 AM EDT 12/11/2024 11:07 AM EDT Edilberto Marin PA-James BODY FLUIDS AND STOOLS ORDERA BLES Final Result [address] [id number] from Last 3 Months Insurance [facility] [employer] [facility] ACO PARTIAL [facility] [employer] [facility] ACO Member Subscriber Plan / Payer (Ef fective 2022-Present) Name:Jennifer Posadas Relation to Subscriber:Self Name:Jennifer Posadas Payer ID:Not on file Type:Medicaid Address: [address] [employer] [place] [address] [employer] [facility] ACO Member Subscriber Plan / Payer (Ef fective 2022-Present) Name:Jennifer Posadas Relation to Subscriber:Self Name:Jennifer Posadas Kristen Payer ID:Not on file Type:Medicaid Address: [place] [id number] [employer] [place] [address] ACO Member Subscriber Plan / Payer (Ef fective 2022-Present) Name:Jennifer Posadas Relation to Subscriber:Self Name:Jennifer Posadas Kristen Payer ID:Not on file Type:Medicaid Address: [address] NET PARTIAL ACO Member Subscriber Plan / Payer (Ef fective 2022-Present) Name:Jennifer Posadas Relation to Subscriber:Self Name:[place] Jennifer Peterson Payer ID:Not on file Type:Medicaid Address: [address] NET PARTIAL ACO Member Subscriber Plan / Payer (Ef fective 2022-Present) Name:Jennifer Posadas Relation to Subscriber:Self Name:Jennifer Posadas Payer ID:Not on file Type:Medicaid Address: [address] SAFETY NET PARTIAL Care Teams Dye Weigher Relationship Specialty Start Date End Date Martina Jacome [facility] [place] [id number] PCP - General Nurse Practitioner 12/11/24 Additional Source Comments The information contained in this document represents components of the legal health record. It is not the complete legal health record.[facility]
--- OUTSIDE RECORDS SUMMARY | 2025-01-06 18:22 | XMS_ITS | Clinical Summary ---
[facility] Address [address] [place] [address] Care Team Providers Care Transition Nurse Name Role Phone Josie Samuel NP Primary Care Provider [phone] Social History Tobacco Use Types Packs/Day Years [...] Panel) 03/25/2022 Colorectal Cancer Screening: Colonoscopy 03/25/2022 HIV Screening 03/25/2022 Hepatitis C Screening 03/25/2022 Social Influencers of Health Screening 03/25/2022 Hypertension/CHF/CAD Annual BMP Blood Test 05/23/2023 Depression Screening 04/23/2024 Influenza Vaccine (#1) 2024 HIB Vaccines Aged Out No longer [...] age to complete this topic Care Teams Transition Nurse Relationship Specialty Start Date End Date Josie Samuel NP [address] [place] [address] PCP - General 11/02/22
--- OUTSIDE RECORDS SUMMARY | 2025-01-06 18:22 | XMS_ITS | Clinical Summary ---
Author Organization [facility] Address [address] [facility] [address] [address] [place] [address] Phone Care Team Providers Care Engraver Set Up Operator Name Role Phone Josie Samuel NP Primary Care Provider [phone] Allergies Active Allergy Reactions Criticality Noted Date [...] Colorectal Cancer Screening: Sigmoidoscopy 2024 Influenza Vaccine (#1) 2024 , 01/30/2023, 03/06/2019, Additional history exists Insurance [facility] Medicaid [facility] Medicaid Care Teams Engraver Set Up Operator Relationship Specialty Start Date End Date Josie Samuel NP [address] PCP - General Nurse Practitioner 03/07/22
== END 2025-01-06 15:28 | disposition home or self-care (01) ==
LOC: HO.HKAS 14:41
PROVIDERS: PCP Nurse Practitioner Family; Visit Provider Internal Medicine Nephrology
DX: N18.4 Chronic kidney disease, stage 4 (severe) (principal); E87.20 Acidosis, unspecified; E55.9 Vitamin D deficiency, unspecified; D63.1 Anemia in chronic kidney disease
CPT/HCPCS: 99214

== ENCOUNTER 2025-04-14 15:29 | Outpatient (AMB) | payer OTHER, SELFPAY ==
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
[2025-04-14 15:59] VITALS: BP 140/80; PULSE 78; O2SAT 98; BMI 25.6
--- OUTSIDE RECORDS SUMMARY | 2025-04-14 16:36 | XMS_ITS | Clinical Summary ---
Author Organization No [employer] [facility] Prior to 09/20/24 Address [address] [place] [address] Care Team Providers Care Endocrinology Nurse Name Role Phone Narendra Ulloa MD Primary Care Provider [phone] Family History Medical History Relation Name Comments [...] Cancer Screening (Colonoscopy) 2020 Influenza Vaccine (#1) 2024 Pneumococcal Vaccine Aged Out No long er eligible based on patient's age to complete this topic RSV Ped < 20 months Aged Out No longe r eligible based on patient's age to complete this topic Care Teams Endocrinology Nurse Relationship Specialty Start Date End Date Narendra Ulloa MD PCP - General Time Cycle Operator 02/07/17
--- OUTSIDE RECORDS SUMMARY | 2025-04-14 16:36 | XMS_ITS | Clinical Summary ---
Author Organization [facility] Address [address] [facility] [address] [place] [phone] Phone Care Team Providers Care Floral Assistant Name Role Phone Martina Jacome PASSPORT SUPPORT ASSOCIATE Primary Care Provider Allergies Active Allergy Reactions Criticality Noted Date Comments Percocet (Oxycodone-Acetamino phen) Other (See Comments) 11/29/2005 Vomiting, Dizziness Phs Other Free Text-See Phs Viewer 11/29/2005 Plastic Adhesive Tape Medications albuterol 90 mcg/actuation inhaler Inhale 2 puffs into the lungs. Active albuterol 2.5 mg /3 mL (0.083 %) nebulizer solution Take 2.5 mg by nebulizatio n. 11/24/2024 Active azaTHIOprine (IMURAN) 50 mg tablet [...] BREO ELLIPTA 50-25 mcg/dose DsDv 11/24/2024 Active Active Problems No known active problems Social History Tobacco Use Types Packs/Day Years [...] Procedure Name Priority Date/Time Associated Diagnosis Comments BASIC METABOLIC PANEL (BMP) STAT 12/11/2024 7:15 PM EDT from Last 3 Months or Most Recently Relevant to Health Maintenance Results * (ABNORMAL) Basic metabolic panel (12/11/2024 7:15 PM EDT) SODIUM 139 133 - 146 mmol/L [facility] CHLORIDE 114(H) 96 - 108 mmol/L [facility] POTASSIUM 4.0 3.3 - 5.1 mmol/L [facility] CO2 15(LL) 21 - 35 mmol/L [facility] Comment: Critical value: Results called to and read back by: Alejandra White in ED BUN 19 6 - 19 mg/dL [facility] CREATININE 2.30(H) 0.5 - 1.5 mg/dL [facility] GLUCOSE 96 70 - 99 mg/dL [facility] CALCIUM 9.0 8.4 - 10.3 mg/dL [facility] EGFR 25(L) >59 mL/min/1.7 3m2 [facility] Comment:Estimated glomerular filtration rate calculated using the CKD-EPI refit equation. ANION GAP 14 10 - 20 mmol/L [facility] Blood 12/11/2024 7:15 PM EDT 12/11/2024 7:19 PM EDT us Kody Olvera MD LAB BLOOD BKR ORDERABLES Final Result [facility] [address] [place] [address] from Last 3 Months or Most Recently Relevant to Health Maintenance Insurance [facility] [employer] NET [place] [address] [place] [address] ACO Member Subscriber Plan / Payer (Ef fective 2022-Present) Name:Jennifer Posadas Relation to Subscriber:Self Name:Jennifer Posadas Payer ID:Not on file Type:Medicaid Address: ONE [address] [employer]AF[employer] NET [place] [address] ACO Member Subscriber Plan / Payer (Ef fective 2022-) Name:Jennifer Posadas Relation to Subscriber:Self Name:Jennifer Posadas Payer ID:Not on file Type:Medicaid Address: [address] NET PARTIAL [employer] NET PARTIAL ACO Member Subscriber Plan / Payer (Ef fective 2022-Present) Name:Jennifer Posadas Relation to Subscriber:Self Name:Jennifer Posadas Payer ID:Not on file Type:Medicaid Address: ONE [address] SAFETY NET PARTIAL [facility] ACO [facility] PARTIAL Care Teams Floral Assistant Relationship Specialty Start Date End Date Martina Jacome NP [address] [place] [id number] PCP - General Nurse Practitioner 12/11/24 Additional Source Comments The information contained in this document represents components of the legal health record. It is not the complete legal health record.[facility]
--- OUTSIDE RECORDS SUMMARY | 2025-04-14 16:36 | XMS_ITS | Clinical Summary ---
Author Organization [facility] Address [address] [facility] [address] [facility] [address] [place] [address] Phone Care Team Providers Care Entry Level Name Role Phone Josie Samuel NP Primary Care Provider [phone] Allergies Active Allergy Reactions Criticality Noted Date [...] 08/16/2022 11/16/2022 Nausea and vomiting 08/16/2022 11/17/19 23 Pain of elbow region 08/16/2022 023 Pain of knee region 08/16/2022 11/17/19 Rib [...] Health Medicaid [facility] Medicaid Care Teams Entry Level Relationship Specialty Start Date End Date Josie Samuel NP [address] PCP - General Nurse Practitioner 03/07/22
--- OUTSIDE RECORDS SUMMARY | 2025-04-14 16:36 | XMS_ITS | Clinical Summary ---
[facility] Address [address] [place] [address] Care Team Providers Care Nail Professional Name Role Phone Josie Samuel NP Primary Care Provider [phone] Social History Tobacco Use Types Packs/Day Years Used Date Smoking Tobacco: Former Cigarettes 0 Q uit: 10/22/2022 Smokeless Tobacco: Never Alcohol [...] Last Done Comments Breast Cancer Screening 1975 Colorectal Cancer Screening: Colonoscopy 1975 COVID-19 Vaccine (#1) 1980 DTaP,Tdap,and Td Vaccines (1 - Tdap) 1994 Hepatitis B Vaccines (1 of 3 - 19+ 3-dose series) 1994 Pneumococcal Vaccine: Pediat rics (0 to 5 Years) and At-Risk Patients (6 to 49 Years) (1 of 2 - PCV) 1994 Cervical Cancer Screening: P ap Smear 1996 Cholesterol Screening (Lipid Panel) 03/25/2022 HIV Screening 03/25/2022 Hepatitis C Screening 03/25/2022 Social Influencers of Health Screening 03/25/2022 Hypertension/CHF/CAD Annual BMP Blood Test 05/23/2023 Depression Screening 04/23/2024 Influenza Vaccine (#1) 2024 RSV Immunization Adult Patie nts (1 - 1-dose 75+ series) 2050 HIB Vaccines Aged Out No longer eligi [...] age to complete this topic Care Teams Nail Professional Relationship Specialty Start Date End Date Josie Samuel NP [address] [place] [address] PCP - General 11/02/22
== END 2025-04-14 16:15 | disposition home or self-care (01) ==
LOC: HO.HKAS 15:29
PROVIDERS: PCP Nurse Practitioner Family; Visit Provider Internal Medicine Nephrology
DX: E55.9 Vitamin D deficiency, unspecified (principal); N18.4 Chronic kidney disease, stage 4 (severe); E87.20 Acidosis, unspecified; D63.1 Anemia in chronic kidney disease
CPT/HCPCS: 99214

== ENCOUNTER → 2025-04-14 15:29 | Outpatient (BNVA) | payer OTHER, SELFPAY | PROVIDERS: PCP Nurse Practitioner Family; Visit Provider Internal Medicine Nephrology | DX: I12.9 Hypertensive chronic kidney disease with stage 1 through stage 4 chronic kidney disease, or unspecified chronic kidney disease (principal); N18.4 Chronic kidney disease, stage 4 (severe); D63.1 Anemia in chronic kidney disease; E87.20 Acidosis, unspecified; E55.9 Vitamin D deficiency, unspecified; K50.90 Crohn's disease, unspecified, without complications; Z79.899 Other long term (current) drug therapy; Z87.891 Personal history of nicotine dependence | CPT/HCPCS: 99212 ==